=== PATIENT | female | born 1975 | race Caucasian/White ===

== ENCOUNTER → 2019-06-10 | Outpatient (CLI) | payer BC ==
--- NOTE | 2019-06-10 16:16 | PCVCIMAG ---
APPROVED REPORT Study performed: 06/10/2019 14:39:37 Exam: Stress Echocardiogram Indication: Chest pain, Fam hx of CAD Patient Location: Echo lab Stress Nurse: Shelby Wells RN Status: routine Ht: 5 ft 2 in HR: 80 bpm BP: 130/80 mmHg Rhythm: NSR Procedure The patient underwent an Exercise Stress Test using the Wayne Protocol. Blood pressure, heart rate, and EKG were monitored. An Echocardiogram was performed by cryptographic technician in four stages in quad fashion. At peak stress, four selected images were obtained and placed side by side with resting images for comparison. Stress Test Details Stress Test: Exercise stress testing was performed using a Wayne protocol. HR Resting HR: 80 bpmMax Heart Rate (APMHR): 178 bpm Max HR Achieved: 166 bpmTarget HR (85% APMHR): 151 bpm % of APMHR: 93 Recovery HR: 93 bpm HR response to stress: Normal HR response to stress BP Resting BP: 130/80 mmHg Max BP: 164/80 mmHg Recovery BP: 128/66 mmHg BP response to stress: Normal blood pressure response to stress. ECG Resting ECG: Sinus Rhythm Stress ECG: Sinus Rhythm ST Change: Normal Maximum ST Deviation: 0 mm Arrhythmia: None Recovery ECG: Sinus Rhythm Recovery ST Change: Normal Recovery ST Deviation: 0 mm Recovery Arrhythmia: None Clinical Reason for Termination: Maximal effort Exercise duration: 9 min 42 sec Highest Stage Achieved: Stage 4: 4.2 mph at 16% grade. Exercise capacity: 12.40 METs Overall Exercise Capacity for Age: Normal Angina Score: None Stress ECG Conclusion Clinical: Non-ischemic ECG: Non-ischemic Chavira Treadmill Score is 9.0 which is Low risk. Pre-Stress Echo The resting Echocardiogram showed normal left ventricular contractility with an estimated Ejection Fraction of about 60-65%. Post-Stress Echo The stress Echocardiogram showed normal left ventricular contractility with an estimated Ejection Fraction of about 65-70%. Normal augmentation of wall motion in all segments on post stress images. Clinical No clinical or ECG evidence for ischemia. Conclusion Clinical Response: Non-ischemic Exercise Capacity: Average Stress ECG Response: Non-ischemic Stress Echo Images: Non-ischemic The left ventricle is normal in size and wall thickness in both the rest and stress images. Other Information Study Quality: Adequate <Conclusion> The left ventricle is normal in size and wall thickness in both the rest and stress images.
--- NOTE | 2019-06-10 16:20 | PCVCIMAG ---
APPROVED REPORT Study performed: 06/10/2019 14:19:24 EXAM: Comprehensive 2D, Doppler, and color-flow Echocardiogram Patient Location: Echo lab Status: routine BSA: 1.89 HR: 80 bpmBP: 130/80 mmHg Rhythm: NSR Other Information Study Quality: Adequate Risk Factors: Cardiac Risk Factors: FHX of CAD Indications Chest Pain 2D Dimensions IVSd: 10.33 (7-11mm)LVOT Diam: 22.30 (18-24mm) LVDd: 36.95 mm PWd: 10.82 (7-11mm)Ascending Ao: 29.02 (22-36mm) LVDs: 22.30 (25-40mm) Left Atrium: 29.66 (27-40mm) Aortic Root: 28.16 mm LV Single Plane 4CH: 58.16 % LV Single Plane 2CH: 73.88 % Biplane EF: 67.1 % Volumes Left Atrial Volume (Systole) Single Plane 4CH: 37.49 mLSingle Plane 2CH: 24.80 mL LA ESV Index: 17.00 mL/m2 Aortic Valve AoV Peak Hugh.: 1.31 m/s AO Peak Gr.: 6.84 mmHgLVOT Max P.58 mmHg LVOT Max V: 0.95 m/s JIMMIE Vmax: 2.83 cm2 Mitral Valve MV A Hugh.: 0.01 m/s IVRT: 107.27 ms TDI Medial E' Hugh.: 0.10 m/s Lateral E' Hugh.: 0.13 m/s Pulmonary Valve PV Peak Gr.: 2.44 mmHg Pulmonary Vein P Vein S: 0.50 m/sP Vein A: 0.42 m/s P Vein D: 0.49 m/sP Vein A Dur.: 90.0 msec P Vein S/D Ratio: 1.02 Tricuspid Valve TR Peak Hugh.: 2.05 m/s TR Peak Gr.: 16.84 mmHg Left Ventricle The left ventricle is normal size. There is normal LV segmental wall motion. There is normal left ventricular wall thickness. Left ventricular systolic function is normal. The left ventricular ejection fraction is within the normal range. LVEF is 65-70%. Right Ventricle The right ventricle is normal size. The right ventricular systolic function is normal. Atria The left atrium size is normal. The right atrium size is normal. Aortic Valve The aortic valve is normal in structure. No aortic regurgitation is present. There is no aortic valvular stenosis. Mitral Valve The mitral valve is normal in structure. Trace mitral regurgitation. No evidence of mitral valve stenosis. Tricuspid Valve The tricuspid valve is normal in structure. Trace tricuspid regurgitation. Pulmonic Valve The pulmonary valve is normal in structure. There is no pulmonic valvular regurgitation. Great Vessels The aortic root is normal in size. IVC is normal in size and collapses >50% with inspiration. Pericardium There is no pericardial effusion. <Conclusion> Left ventricular systolic function is normal. There is normal LV segmental wall motion. LVEF is 65-70%. The aortic valve is normal in structure. No aortic regurgitation or stenosis. The mitral valve is normal in structure. Trace mitral regurgitation. Pulmonary artery systolic pressure could not be reliably ascertained. There is no pericardial effusion.
== END | disposition home or self-care (01) ==
LOC: PCVCIMAG 15:07
PROVIDERS: ATTEND Internal Medicine
DX: R07.9 Chest pain, unspecified (principal); R00.2 Palpitations; E78.5 Hyperlipidemia, unspecified; Z82.49 Family history of ischemic heart disease and other diseases of the circulatory system
CPT/HCPCS: 93306; 93351